=== PATIENT | female | born 1975 | race Two or more races ===

== ENCOUNTER 2022-06-18 06:14 | Outpatient (CLI) | payer OTHER | END 2022-06-18 06:18 | disposition home or self-care (01) | LOC: LAB 06:14 | DX: E03.9 Hypothyroidism, unspecified (principal); J98.2 Interstitial emphysema; E78.2 Mixed hyperlipidemia; E11.59 Type 2 diabetes mellitus with other circulatory complications; R10.0 Acute abdomen; D55.9 Anemia due to enzyme disorder, unspecified; Z12.11 Encounter for screening for malignant neoplasm of colon; N39.0 Urinary tract infection, site not specified ==